=== PATIENT | male | born 1970 | race Two or more races ===

== ENCOUNTER 2020-10-21 09:38 | Emergency (ER) | payer OTHER, SELFPAY ==
[2020-10-21] VITALS (7 sets, daily range): BP systolic 110–144; BP diastolic 71–94; PULSE 67–80; RESP 15–18; TEMP 36.6; O2SAT 96–98; BMI 24.7
--- NOTE | ~2020-10-21 | XR_ITS ---
EXAMINATION: XR CHEST CLINICAL INFORMATION: Chest pain. COMPARISON: None TECHNIQUE: Frontal view of the chest was obtained. FINDINGS: No significant abnormality is noted involving the heart, lungs, mediastinum, bony thorax or soft tissues. XR/XR chest 1V IMPRESSION: Unremarkable chest examination.
--- NOTE | 2020-10-21 09:47 | ED_ITS ---
HPI - Chest Pain General Chief Complaint: Chest Pain Stated Complaint: CP RAD TO LEFT ARM Time Seen by Provider: 10/21/20 09:47 Source: patient Mode of arrival: EMS Limitations: no limitations History of Present Illness HPI narrative: chest pain while driving radiating to left arm and neck. Patient only has high cholesterol. eventually pain went away with left arm feeling numbness Timing of current episode: constant Prior episodes: No Onset: during rest Pain location: substernal Pain radiation: left arm Treatment prior to arrival: aspirin Risk Factors Coronary artery disease risk factors: none Thoracic aortic dissection risk factors: none Related Data Allergies Allergy/AdvReac Type Severity Reaction Status Date / Time sulfamethoxazole Allergy Intermediate Hives Verified 10/21/20 09:52 [From Bactrim] trimethoprim [From Bactrim] Allergy Intermediate Hives Verified 10/21/20 09:52 Review of Systems Constitutional: Constitutional: Reports no additional constitutional complaints Eyes: Eyes: Reports no additional eye complaints ENT: Denies dizziness Cardiovascular: Cardiovascular: Reports no additional cardiovascular complaints Respiratory: Respiratory: Reports as per HPI Gastrointestinal: Gastrointestinal: Reports no additional gastrointestinal complaints Musculoskeletal: Musculoskeletal: Reports no additional musculoskeletal complaints Integumentary/Breasts: Skin/Breast: Denies rash Neurologic: Reports system reviewed and no additional complaints, except as documented, Denies dizziness and Denies Sensory deficit (Neuro) Psychiatric: Psychiatric: Denies anxiety [facility] Social History Social History Advance Directives: No Advance Directives Information Provided: Yes Physical Exam Vital Signs: Vital Signs: Last Vital Signs Temp 98 F 10/21/20 09:52 Pulse 71 10/21/20 10:05 Resp 18 10/21/20 09:52 BP 144/87 H 10/21/20 10:05 Pulse Ox 98 10/21/20 09:52 Body Mass Index 24.7 Const: General: healthy appearing Nutritional Appearance: average body habitus Orientation/consciousness: oriented to person and patient oriented x3 Limitations: no limitations HENMT: Head: Yes normal to inspection Ears: external ears normal General nose exam: Normal external nose present Mouth: Normal oral and palatal mucosa present and oropharynx normal Throat: Yes posterior oropharynx normal Eyes: General: appearance normal, both eyes and all related structures Neck: Other: supple Neck: Yes normal visual inspection Chest: Chest palpation & inspection: normal inspection of the chest Resp: Auscultation: clear to auscultation bilaterally Cardio: Jugular venous distension: no JVD Rate: regular rate Rhythm: regular rhythm Heart sounds: S1 normal heart sound present and S2 normal heart sound present GI: Inspection: Yes normal to inspection Palpation (GI): Soft to palpation, nontender and No hepatosplenomegaly present Auscultation: normal bowel sounds : General: Yes no CVA tenderness Back/Spine/Pelvis: Back: no CVA tenderness Skin: General skin exam: no rashes or lesions noted Neuro: General: oriented to person and patient oriented x3 Cranial nerves: Yes CN's II-XII intact bilaterally Motor exam (neuro): 5/5 motor strength present throughout Sensory Exam: No Sensory deficit (Neuro) Extrem: General: Yes normal to inspection Psych: Appearance: grossly normal Course Course Course Narrative: Discussed history and physical with Dr. Sierra of cardiology. Patients only risk factors is male and high cholesterol. Story is concerning but repeat EKGs and troponin were negatve. The patient and his feel comfortable going home and seeing Dr. Sierra tomorrow MDM - Chest Pain Lab Data Result diagrams: 10/21/20 10:01 10/21/20 10:01 Labs: Lab Results 10/21/20 10/21/20 10/21/20 Range/Units 10:01 10:01 10:01 WBC 4.1 L (4.8-10.8) X10*3/uL RBC 4.63 (4.60-5.80) X10*6/uL Hgb 14.9 (14.0-18.0) g/dl Hct 44.3 (42-52) % MCV 95.7 (80-98) fL MCH 32.2 (27.0-33.0) pg MCHC 33.6 (31.0-36.0) g/dl RDW 12.1 (11.0-16.0) % Plt Count 187 (160-400) X10*3/uL MPV 10.2 (9.4-12.4) fL Immature Gran % (Auto) 0.5 H (0.0-0.4) % Neut % (Auto) 42.1 L (45-73) % Lymph % (Auto) 44.6 H (20-40) % [place] % (Auto) 6.9 (2-11) % Eos % (Auto) 4.9 H (0-4) % Baso % (Auto) 1.0 (0-2) % Lymph # (Auto) 1.8 (1.2-4.9) X10*3/uL [place] # (Auto) 0.3 (0.1-1.2) X10*3/uL Eos # (Auto) 0.2 (0.0-0.4) X10*3/uL Baso # (Auto) 0.0 (0.0-0.2) X10*3/uL Abs Immat Gran (auto) 0.02 (0.00-0.03) X10*3/uL Absolute Neuts (auto) 1.7 L (2.0-8.3) X10*3/uL Absolute Nucleated RBC 0.000 (0.0-0.012) X10*3/uL Nucleated RBC % (auto) 0.0 (0.0-0.2) /100WBC Sodium 139 (135-145) mmol/L Potassium 4.5 (3.3-5.1) mmol/L Chloride 104 (96-108) mmol/L Carbon Dioxide 28 (22-29) mmol/L Anion Gap 12 (12-20) BUN 13 (9-16) mg/dL Creatinine 1.05 (0.5-1.4) mg/dL Estim Creat Clear Calc 89.8 Estimated GFR > 60 Random Glucose 112 (60-115) mg/dL Calcium 9.6 (8.4-10.2) mg/dL Troponin I High Sens < 3.5 (<3.5-35.0) ng/L 10/21/20 Range/Units 13:13 WBC (4.8-10.8) X10*3/uL RBC (4.60-5.80) X10*6/uL Hgb (14.0-18.0) g/dl Hct (42-52) % MCV (80-98) fL MCH (27.0-33.0) pg MCHC (31.0-36.0) g/dl RDW (11.0-16.0) % Plt Count (160-400) X10*3/uL MPV (9.4-12.4) fL Immature Gran % (Auto) (0.0-0.4) % Neut % (Auto) (45-73) % Lymph % (Auto) (20-40) % [place] % (Auto) (2-11) % Eos % (Auto) (0-4) % Baso % (Auto) (0-2) % Lymph # (Auto) (1.2-4.9) X10*3/uL [place] # (Auto) (0.1-1.2) X10*3/uL Eos # (Auto) (0.0-0.4) X10*3/uL Baso # (Auto) (0.0-0.2) X10*3/uL Abs Immat Gran (auto) (0.00-0.03) X10*3/uL Absolute Neuts (auto) (2.0-8.3) X10*3/uL Absolute Nucleated RBC (0.0-0.012) X10*3/uL Nucleated RBC % (auto) (0.0-0.2) /100WBC Sodium (135-145) mmol/L Potassium (3.3-5.1) mmol/L Chloride (96-108) mmol/L Carbon Dioxide (22-29) mmol/L Anion Gap (12-20) BUN (9-16) mg/dL Creatinine (0.5-1.4) mg/dL Estim Creat Clear Calc Estimated GFR Random Glucose (60-115) mg/dL Calcium (8.4-10.2) mg/dL Troponin I High Sens < 3.5 (<3.5-35.0) ng/L ECG Data ECG #1: Attestation: I personally reviewed and interpreted this ECG as follows: Interpretation: normal sinus rate of 70, no st or twave changes ECG #2: Attestation: I personally reviewed and interpreted this ECG as follows: Interpretation: normal sinus rhythm rate of 70, no st or twave changes Discharge Plan Discharge Clinical Impression: Chest pain Qualifiers: Chest pain type: unspecified Qualified Code(s): R07.9 - Chest pain, unspecified Patient Disposition: Home, Self-Care Instructions: Chest Pain (ED) Referrals: Rafa Sierra MD [Physician] - 1 day (to see cardiology tomorrow)
--- NOTE | 2020-10-21 09:52 | ECG_ITS ---
Test Reason : REPEAT Blood Pressure : / mmHG Vent. Rate : 068 BPM Atrial Rate : 068 BPM P-R Int : 160 ms QRS Dur : 084 ms QT Int : 364 ms P-R-T Axes : 031 032 011 degrees QTc Int : 387 ms Normal sinus rhythm Normal ECG When compared with ECG of 21-OCT-2020 09:47, No significant change was found Referred By: Dominick Pretty Electronically Signed By:QUEENIE JETER
[2020-10-21] MEDS: Nitroglycerin 0.4 MG TAB.SUBL SUBLINGUAL (10:05)
[2020-10-21 10:06] LABS: MANUAL DIFF FLAG NO
[2020-10-21 10:08] LABS: Eosinophils Absolute Auto 0.2 X10*3/uL (0.0-0.4); Eosinophils Percent Auto 4.9 % (0-4); Hematocrit 44.3 % (42-52); Hemoglobin 14.9 g/dl (14.0-18.0); Imm Gran Abs Auto 0.02 X10*3/uL (0.00-0.03); Imm Gran Pct Auto 0.5 % (0.0-0.4); Lymphocytes Absolute Auto 1.8 X10*3/uL (1.2-4.9); Lymphocytes Percent Auto 44.6 % (20-40); Mean Corpuscular HGB Conc 33.6 g/dl (31.0-36.0); Mean Corpuscular Hemoglobin 32.2 pg (27.0-33.0); Mean Corpuscular Volume 95.7 fL (80-98); Mean Platelet Volume 10.2 fL (9.4-12.4); Monocytes Absolute Auto 0.3 X10*3/uL (0.1-1.2); Monocytes Percent Auto 6.9 % (2-11); Neutrophils Absolute Auto 1.7 X10*3/uL (2.0-8.3); Neutrophils Percent Auto 42.1 % (45-73); Platelet Count 187 X10*3/uL (160-400); Red Blood Count 4.63 X10*6/uL (4.60-5.80); Red Cell Distribution Width 12.1 % (11.0-16.0); White Blood Count 4.1 X10*3/uL (4.8-10.8)
[2020-10-21 10:35] LABS: Anion Gap 12 (12-20); Blood Urea Nitrogen 13 mg/dL (9-16); Calcium 9.6 mg/dL (8.4-10.2); Carbon Dioxide 28 mmol/L (22-29); Chloride 104 mmol/L (96-108); Creatinine Clr Calc Pharmacy 89.8; Estimated Glomerular Filt Rate > 60; Glucose Random 112 mg/dL (60-115); Potassium 4.5 mmol/L (3.3-5.1); Sodium 139 mmol/L (135-145)
[2020-10-21 10:36] LABS: Troponin-I High Sensitivity < 3.5 ng/L (<3.5-35.0)
--- NOTE | 2020-10-21 13:28 | ECG_ITS ---
Test Reason : CP Blood Pressure : / mmHG Vent. Rate : 073 BPM Atrial Rate : 073 BPM P-R Int : 160 ms QRS Dur : 074 ms QT Int : 348 ms P-R-T Axes : 028 030 011 degrees QTc Int : 383 ms Normal sinus rhythm Normal ECG No previous ECGs available Referred By: Dominick Pretty Electronically Signed By:QUEENIE JETER
[2020-10-21 13:57] LABS: Troponin-I High Sensitivity < 3.5 ng/L (<3.5-35.0)
== END 2020-10-21 15:14 | disposition home or self-care (01) ==
PROVIDERS: Emergency Provider Emergency Medicine; PCP Internal Medicine
DX: R07.9 Chest pain, unspecified (principal); R20.0 Anesthesia of skin; E78.5 Hyperlipidemia, unspecified
CPT/HCPCS: 36415; 71045; 80048; 84484; 85025; 93005; 99283

== ENCOUNTER 2020-10-21 16:05 | Outpatient (REF) | payer OTHER, SELFPAY ==
--- NOTE | 2020-10-21 16:03 | CA_ITS ---
Transthoracic Echocardiogram Patient (Last, First, Middle): NameCarlton, Gender: Male Date of : 1970 Age: 49 Procedure Date: 10/21/2020 Procedure Type: Transthoracic Echocardiogram Location: OP Height: 167.64 cm Weight: 73.48 kg BSA: 1.83 m2 Heart Rate: bpm BP: 118 / 76 mmHg Wired Sweatband Cutter: GEOFF Referring MD: Rafa Sierra MD Symptoms: R07.2 - Precordial pain Study Quality: Fair ECG Rhythm: Sinus Conclusions: - The left ventricular systolic function is normal. The visually estimated ejection fraction is between 60-65%. - No obvious valvular pathology seen on this study. Findings Left Ventricle Normal left ventricular cavity size. There is normal left ventricular wall thickness. The left ventricular systolic function is normal. The visually estimated ejection fraction is between 60-65%. There is no evidence of regional wall motion abnormalities. Diastolic function is normal for age. Right Ventricle Normal right ventricular cavity size and systolic function. Atria Both atria are normal in size. Aortic Valve There is a normal trileaflet aortic valve. There is no aortic valve stenosis. There is no aortic valve regurgitation. Mitral Valve The mitral valve appears normal. There is trace mitral valve regurgitation. There is no mitral valve stenosis. Pulmonic Valve The pulmonic valve was not well visualized. Tricuspid Valve Normal tricuspid valve structure. There is trace tricuspid valve regurgitation. The pulmonary artery systolic pressure is normal. Great Vessels The aortic annulus, sinuses of valsalva, and asc aorta are normal in size. Venous The inferior vena cava is normal in size and collapses greater than 50% with inspiration. Pericardium/Pleural There is no evidence of pericardial effusion. Prior Study Comparison No prior study available for comparison. Recommendations, Care & Conclusions No obvious valvular pathology seen on this study. Measurements 2D Linear Measurements IVSd: 0.74 0.6-0.9/0.6-1.0 cm LVIDd: 4.44 3.9-5.3/4.2-5.9 cm LVIDd Index: 2.43 2.4-3.2/2.2-3.1 cm/m2 LVIDs: 2.93 2.0-3.6 cm LVPWd: 0.76 0.7-1.1 cm Ao Root: 2.60 2.1-3.5 cm LA Diam: 3.10 2.7-3.8/3.0-4.0 cm LAIDs Index: 1.69 1.5-2.3 cm/m2 LV Mass: 126.06 67-162/88-224 g LV Mass Index: 68.88 43-95/49-115 g/m2 LVOT Diam: 2.00 3.0+(-)1.3 cm 2D Systolic Function EF 4C: 70.70 >55% EF 2C: 60.90 >55% EF BiP: 65.20 >55% Mitral Valve MV Pk E: 0.68 MV PK A: 0.40 MV Decel Time: 191.00 E/A: 1.70 E'Lateral: 10.60 E'Medial: 9.57 E/E' Med: 7.10 E/E' Lat: 6.40 PHT: 56.00 MVA PHT: 3.93 Decel Graham: 3.54 Aortic Valve AoV Pk Dwayne: 1.26 AoV Pk Grad: 6.00 LVOT LVOT Pk Dwayne: 1.08 LVOT Mn Dwayne: 0.73 LVOT VTI: 0.19 LVOT Pk Grad: 5.00 LVOT Mn Grad: 2.00 LVOT Diam: 2.00 LVOT Area: 3.14 Diastolic Function MV Pk E: 0.68 MV Pk A: 0.40 E/A: 1.70 E'Medial: 9.57 E/E' Med: 7.10 E' Laterial: 10.60 E/E' Lat: 6.40 Tricuspid Valve TR Pk Dwyane: 1.91 TR Pk Grad: 15.00 RA Press: 3.00 RVSP: 18.00 Great Vessels Aorta Ao Root-2D: 2.60 2.0-3.7 cm Ao Asc: 2.60 2.1-3.4 cm Updated in Other Vendor System with Status of Final Rafa Sierra MD electronically signed on 10/21/2020 5:30:17 PM with status of Final
== END 2020-10-21 16:06 | disposition home or self-care (01) ==
LOC: HO.LAB 16:05
PROVIDERS: PCP Pediatrics; Visit Provider Internal Medicine
DX: R07.2 Precordial pain (principal); Z20.822 Contact with and (suspected) exposure to COVID-19
CPT/HCPCS: 93306

== ENCOUNTER → 2021-11-17 13:05 | Outpatient (REF) | payer OTHER, SELFPAY | LOC: HO.SL 13:05 | PROVIDERS: PCP Pediatrics; Visit Provider Family Medicine | DX: G47.30 Sleep apnea, unspecified (principal); R06.83 Snoring | CPT/HCPCS: 95806 ==

== ENCOUNTER 2024-04-06 13:03 | Outpatient (REF) | payer OTHER, SELFPAY ==
[2024-04-06 16:55] LABS: Cholesterol 244 mg/dL (<200); HDL Cholesterol 58 mg/dL (>40); LDL Cholesterol Calculated 157 mg/dL (<100); Triglycerides 145 mg/dL (<150)
== END 2024-04-06 13:04 | disposition home or self-care (01) ==
LOC: HO.HHCL 13:03
PROVIDERS: Visit Provider Family Medicine
DX: E78.5 Hyperlipidemia, unspecified (principal)
CPT/HCPCS: 36415; 80061

== ENCOUNTER 2024-09-13 16:25 | Outpatient (REF) | payer OTHER, SELFPAY ==
[2024-09-13 18:18] LABS: Appearance Urine Clear; Color Urine Yellow; Glucose Urine UA Negative (Negative); Leukocyte Esterase Urine Negative (Negative); Nitrite Urine Negative (Negative); Specific Gravity - Urine 1.015 (1.005-1.025); Urine Blood Negative (Negative); Urine Ketones Negative (Negative); Urine Protein Negative (Neg-Trace)
--- OUTSIDE RECORDS SUMMARY | 2024-09-13 18:18 | XMS_ITS | Encounter Summary ---
Author Organization [employer] Address [address] [place] [address] Care Team Providers Care Engraving Plate Maker Name Role Phone Nell Miguel MD Primary Care Provider [phone] Encounter Details Date Type Department Care Team (Late st Contact Info) Description 09/13/2024 Orders Only [facility] [address] [place], [place] [id number] Nayely Kemp NP [address] [place] [address] Frequency of micturition (Primary Dx) Social History Tobacco Use Types Packs/Day Years Used Date Smoking Tobacco: Never Assessed Sex and Gender Information Value Date Recorded Sex Assigned at Male 03/30/2022 10:32 AM EDT Legal Sex Male 10:32 AM EDT Gender Identity Male 03/30/2022 10:32 AM EDT Sexual Orientation Straight 03/30/2022 10 :32 AM EDT documented as of this encounter Plan of Treatment Scheduled Orders Name Type Priority Associated Diagnoses Orde r Schedule Urinalysis with reflex microscopic Lab Routine Frequency of micturition Expected: 09/13/2024, Expires: 09/13/2025 PSA,Total Lab Routine Frequency of micturition Expected: 09/13/2024, Expires: 09/13/2025 documented as of this encounter Visit Diagnoses Diagnosis Frequency of micturition- Primary Urinary frequency documented in this encounter Care Teams Engraving Plate Maker Relationship Specialty Start Date End Date Nell Miguel MD [address] [place] [address] PCP - General Family Medicine 11/09/22 documented as of this encounter
--- OUTSIDE RECORDS SUMMARY | 2024-09-13 18:18 | XMS_ITS | Encounter Summary ---
Author Organization [employer] Address [address] [place] [address] Care Team Providers Care Barrow Worker Helper Name Role Phone Nell Miguel MD Primary Care Provider [phone] Encounter Details Date Type Department Care Team (Late st Contact Info) Description 09/13/2024 Orders Only [facility] [address] [place], [place] [phone] Mellissa Quintanilla MD [address] [place] [address] Social History Tobacco Use Types Packs/Day Years Used Date Smoking Tobacco: Never Assessed Sex and Gender Information Value Date Recorded Sex Assigned at Male 03/30/2022 10:32 AM EDT Legal Sex Male 10:32 AM EDT Gender Identity Male 03/30/2022 10:32 AM EDT Sexual Orientation Straight 03/30/2022 10 :32 AM EDT documented as of this encounter Plan of Treatment Not on file documented as of this encounter Visit Diagnoses Not on filedocumented in this encounter Care Teams Barrow Worker Helper Relationship Specialty Start Date End Date Nell Miguel MD [address] [place] [address] PCP - General Family Medicine 11/09/22 documented as of this encounter
--- OUTSIDE RECORDS SUMMARY | 2024-09-13 18:18 | XMS_ITS | Clinical Summary ---
Author Organization [employer] Address [address] [place] [address] Care Team Providers Care Administrative Representative Name Role Phone Nell Miguel MD Primary Care Provider [phone] Allergies Active Allergy Reactions Criticality Noted Date Comments Sulfamethoxazole-Trimethoprim Unknown 2024 Medications Nirmatrelvir&Ri tonavir 300/100 (Paxlovid, 300/100,) 20 x 150 MG & 10 x 100MG tablet therapy pack Take 1 Dose by mouth 2 times daily. 30 each 05/19/2023 Active tamsulosin (Flomax) 0.4 MG 24 hr capsule Take 1 capsule (0.4 mg) by mouth Once per day. 30 capsule 2 09/13/2024 Active Active Problems Problem Noted Date Diagnosed Date Frequency of micturition 09/13/2024 Encounters Date Type Department Care Team Description 09/13/2024 Orders Only [facility] [address] [place] [address] Nayely Kemp NP Frequency of micturition (Primary Dx) 09/13/2024 Orders Only [facility] [address] [place] [address] Mellissa Quintanilla MD 08/08/2024 3:00 PM EDT Clinical Support [facility] [address] [place], [place] [phone] Emilie Holliday, [place] Encounter for immunization 08/08/2024 Travel from Last 3 Months Immunizations Name Administration Dates Next Due Influenza Injectable Quadriv alant Preservative Free IIV4 MDCK 02/23/2023,02/12/2022,02/13/2021,2019 Influenza injectable quadriv alent IIV4 with preservative 02/08/2019,02/09/2018 Influenza, IIV3, injectable 02/18/2015,0 02/21/2013,02/16/2012,2009 Influenza, seasonal, injecta ble, preservative free 02/09/2024 Novel [id number], preservative-free 03/15/2009 Pfizer Covid-19 Vaccine 12+ 03/17/2024, Pneumococcal Conjugate PCV 20 08/08/2024 Tdap 10/27/2017,05/19/2007 Social History Tobacco Use Types Packs/Day Years Used Date Smoking Tobacco: Never Assessed Sex and Gender Information Value Date Recorded Sex Assigned at Male 03/30/2022 10:32 AM EDT Legal Sex Male 10:32 AM EDT Gender Identity Male 03/30/2022 10:32 AM EDT Sexual Orientation Straight 03/30/2022 10 :32 AM EDT Last Filed Vital Signs Vital Sign Reading Time Taken Comments Blood Pressure 132/78 08/21/2021 12:03 AM EDT Pulse 84 08/21/2021 12:03 AM EDT Temperature - - Respiratory Rate - - Oxygen Saturation - - Inhaled Oxygen Concentration - - Weight 75.6 kg (166 lb 9.6 oz) 08/21/2021 12:03 AM EDT Height 165.1 cm (5' 5 ) 08/21/2021 12:03 AM EDT Body Mass Index 27.72 08/21/2021 12:03 AM EDT Plan of Treatment Health Maintenance Due Date Last Done Comments CT Colonography 1970 Colonoscopy 1972 Colorectal Cancer Screening 1970 Depression Screening 1970 FIT DNA/Cologuard 1970 FIT 1972 FOBT 1970 HIV Screening 1970 SDOH Screening 1970 Sigmoidoscopy 1970 Alcohol/Substance Use Screening 1984 Tobacco Screening 1984 Family Planning (PISQ) 11/14/1987 Hepatitis C Screening 1990 Hepatitis B Vaccines (1 of 3 - 19+ 3-dose series) 11/14/1991 Zoster Vaccines (1 of 2) 2022 DTaP/Tdap/Td Vaccines (3 - Td or Tdap) 10/28/2027 10/27/2017, 05/19/2007 Lipid Panel 04/06/2029 04/06/2024, 08/28/2021 RSV Patients and Patients Aged 60 years or older (1 - 1-dose 75+ series) 11/14/2047 Influenza Vaccine Completed 02/09/2024, , 02/12/2022, Additional history exists COVID-19 Vaccine Completed 03/17/2024, 09/2022, 02/19/2022, Additional history exists Pneumococcal Vaccine: 50+ Years Completed 08/08/2024 HIB Vaccines Aged Out No longer eligi ble based on patient's age to complete this topic HPV Vaccines Aged Out No longer eligi ble based on patient's age to complete this topic Hepatitis A Vaccines Aged Out No long er eligible based on patient's age to complete this topic IPV Vaccines Aged Out No longer eligi ble based on patient's age to complete this topic Meningococcal Vaccine Aged Out No mariah oniel eligible based on patient's age to complete this topic RSV under 20 months Aged Out No longe r eligible based on patient's age to complete this topic Rotavirus Vaccines Aged Out No longer eligible based on patient's age to complete this topic Procedures Procedure Name Priority Date/Time Associated Diagnosis Comments LIPID PANEL, STANDARD Routine 04/06/2024 1:05 PM EST Elevated lipids from Last 3 Months or Most Recently Relevant to Health Maintenance Results * (ABNORMAL) Lipid Panel, Standard (04/06/2024 1:05 PM EST) Triglycerides 145 <150 mg/dL [facility] Comment:Desirable Triglyceri de: less than 150 mg/dLBorderline High Triglyceride 150-199 mg/dLHigh Triglyceride: 200-499 mg/dLVery High Triglyceride: greater than or equal to 5OO mg/dL Cholesterol 244(H) <200 mg/dL [facility] Comment:Desirable Cholestero l: less than 200 mg/dLBorderline High Cholesterol: 200-239 mg/dLHigh Cholesterol: greater than 239 mg/dL LDL Cholesterol Calculated 157(H) <100 mg/dL [facility] Comment:Desirable LDL: less than 100 mg/dLNear Optimal/Above Optimal LDL: 110- 129 mg/dLBorderline High LDL: 130-159 mg/dLHigh LDL: 160-189 mg/dLVery High LDL: greater than or equal to 190 mg/dL HDL Cholesterol 58 >40 mg/dL [facility] Comment:Desirable HDL: great er than 40 mg/dL Note: This HDL assay may give artificially low results in patients with liver disease. Blood Venous blood specimen / Unknown 04/06/2024 1:05 PM EST 04/06/2024 4:00 PM EST us Nell Miguel MD LAB BLOOD ORDERABLES Final Re sult [facility] [address] [place] [address] [phone] from Last 3 Months or Most Recently Relevant to Health Maintenance Insurance [facility] , [address] [place] [address] Care Teams Administrative Representative Relationship Specialty Start Date End Date Nell Miguel MD [address] [place] [address] PCP - General Family Medicine 11/09/22
[2024-09-13 18:42] LABS: Prostate Specific Antigen 0.73 ng/mL (<0.05-4.0)
== END 2024-09-13 16:26 | disposition home or self-care (01) ==
LOC: HO.HHCL 16:25
PROVIDERS: Visit Provider Nurse Practitioner Family
DX: R35.0 Frequency of micturition (principal); Z12.5 Encounter for screening for malignant neoplasm of prostate
CPT/HCPCS: 36415; 81003; 84153